=== PATIENT | female | born 1960 | race Caucasian/White ===

== ENCOUNTER 2022-01-21 07:48 | Day surgery (SDC) | payer BC ==
[2022-01-21] MEDS ORDERED: Sodium Bicarbonate 2.5 MEQ/5 ML VIAL ONE (08:19)
[2022-01-21] MEDS ORDERED: Lidocaine 1% PF 5 ML VIAL ONE (08:19)
[2022-01-21 08:27] LABS: PTT 26.4 sec (22.0-33.0); Prothrombin Time 10.4 sec (9.5-12.1)
[2022-01-21 08:39] VITALS: BP 135/63; TEMP 97.2
== END 2022-01-21 09:45 | disposition home or self-care (01) ==
LOC: CSHULT 07:48
PROVIDERS: ATTEND Internal Medicine Hematology & Oncology
PROC: 0W9G3ZZ Drainage of Peritoneal Cavity, Percutaneous Approach (ICD-10-PCS; principal; 2022-01-21)
DX: C54.1 Malignant neoplasm of endometrium (principal); C78.6 Secondary malignant neoplasm of retroperitoneum and peritoneum; N18.9 Chronic kidney disease, unspecified; D63.1 Anemia in chronic kidney disease; R18.8 Other ascites; Z79.899 Other long term (current) drug therapy; Z88.0 Allergy status to penicillin; Z88.8 Allergy status to other drugs, medicaments and biological substances; Z91.040 Latex allergy status
CPT/HCPCS: 49083; 85610; 85730; 88112; 88305; 88341; 88342

== ENCOUNTER 2022-04-09 10:10 | Day surgery (SDC) | payer BC ==
[2022-04-09 10:51] VITALS: BP 154/71; TEMP 98.4
[2022-04-09] MEDS ORDERED: Lidocaine 1% PF 5 ML VIAL ONE (10:59)
[2022-04-09] MEDS ORDERED: Sodium Bicarbonate 2.5 MEQ/5 ML VIAL ONE (10:59)
[2022-04-09 11:29] LABS: Prothrombin Time 10.5 sec (9.5-12.1)
[2022-04-12] MEDS ORDERED: Prevnar 13-Val Conj/PF 0.5 ML SYRINGE IM ONE (11:00)
[2022-04-12] MEDS ORDERED: FLU VACC QS2022-23(6MOS UP)/PF 60 MCG/0.5 ML SYRINGE IM ONE (11:00)
== END 2022-04-09 11:57 | disposition home or self-care (01) ==
LOC: CSHULT 10:10
PROVIDERS: ATTEND Internal Medicine Hematology & Oncology
PROC: 0W9G3ZZ Drainage of Peritoneal Cavity, Percutaneous Approach (ICD-10-PCS; principal; 2022-04-09)
DX: R18.8 Other ascites (principal); C53.8 Malignant neoplasm of overlapping sites of cervix uteri; F41.9 Anxiety disorder, unspecified; Z88.0 Allergy status to penicillin; Z88.8 Allergy status to other drugs, medicaments and biological substances; Z91.040 Latex allergy status; Z79.899 Other long term (current) drug therapy
CPT/HCPCS: 49083; 85610